=== PATIENT | female | born 1990 | race Caucasian/White ===

== ENCOUNTER → 2020-08-07 07:12 | Outpatient (CLI) | payer BC, OTHER, SELFPAY ==
[2020-08-07 19:39] LABS: SARS-CoV-2 RNA PCR Negative
== END ==
PROVIDERS: PCP Family Medicine; Visit Provider Physician Assistant
DX: R09.89 Other specified symptoms and signs involving the circulatory and respiratory systems (principal); Z20.822 Contact with and (suspected) exposure to COVID-19
CPT/HCPCS: C9803; U0003; U0005

== ENCOUNTER → 2020-11-10 02:15 | Outpatient (CLI) | payer BC, OTHER, SELFPAY ==
[2020-11-10 17:52] LABS: SARS-CoV-2 RNA PCR Negative
== END ==
PROVIDERS: PCP Family Medicine; Visit Provider Nurse Practitioner Family
DX: R68.89 Other general symptoms and signs (principal); Z20.822 Contact with and (suspected) exposure to COVID-19
CPT/HCPCS: C9803; U0003; U0005

== ENCOUNTER → 2021-03-30 08:04 | Outpatient (CLI) | payer BC, OTHER, SELFPAY ==
[2021-03-30 20:28] LABS: SARS-CoV-2 RNA PCR Negative
== END ==
PROVIDERS: PCP Family Medicine; Visit Provider Physician Assistant
DX: R53.83 Other fatigue (principal); Z20.822 Contact with and (suspected) exposure to COVID-19
CPT/HCPCS: C9803; U0003; U0005

== ENCOUNTER 2022-01-17 13:16 | Outpatient (CLI) | payer BC, OTHER, SELFPAY ==
--- NOTE | ~2022-01-17 | US_ITS ---
EXAMINATION: US soft tissue UE RT DATE: 01/17/2022 14:01 INDICATION: Localized swelling, mass and lump along the anterior right forearm. TECHNIQUE: Multiple grayscale and Doppler ultrasound images of the region of concern at the right for earm were obtained. COMPARISON: None FINDINGS: There is branching pattern of low echogenicity likely representing edema extending through the subcut aneous fat in an approximately 1.5 cm region at the site of concern. No other abnormal masses or flui d collections identified. The underlying musculature is unremarkable. IMPRESSION: 1. Small region of nonspecific likely edema interspersed amongst the subcutaneous fat at the region o f concern. No masses or loculated fluid collections. Reviewed, dictated and finalized at location A. IMPRESSION: 1. Small region of nonspecific likely edema interspersed amongst the subcutaneo us fat at the region of concern. No masses or loculated fluid collections.
== END 2022-01-17 13:17 | disposition home or self-care (01) ==
PROVIDERS: PCP Family Medicine; Visit Provider Nurse Practitioner Family
DX: R22.31 Localized swelling, mass and lump, right upper limb (principal)
CPT/HCPCS: 76882

== ENCOUNTER 2022-11-21 08:54 | Outpatient (CLI) | payer BC, SELFPAY ==
--- NOTE | ~2022-11-21 | US_ITS ---
EXAMINATION: US OB <=14 wk fetus w TV DATE: 11/21/2022 10:12 INDICATION: with inconclusive viability. TECHNIQUE: Real-time transabdominal and transvaginal pelvic ultrasound was performed. COMPARISON: None. FINDINGS: TRANSABDOMINAL ULTRASOUND: The uterus measures 11.3 x 6.3 x 8.8 cm. TRANSVAGINAL ULTRASOUND: There is an intrauterine gestational sac. A yolk sac is identified. The fet al crown rump length measures 3.6 cm, which correlates with an estimated gestational age of 10 weeks and 4 day(s) (+/-) 1 week(s) and 0 day(s). heart motion is identified measuring 161 beats per m inute (bpm) by M-mode Doppler. The umbilical cord is thickened with a bulbous contour where it attach es to the anterior abdominal wall, consistent with an omphalocele. The ovaries are not visualized. Th ere is no free fluid in the pelvis. IMPRESSION: 1. Single living intrauterine gestation with estimated date of delivery of 06/15/2023. 2. Omphalocele. Reviewed, dictated and finalized at location A. IMPRESSION: 1. Single living intrauterine gestation with estimated date of delivery of 05/26. 2. Omphalocele.
== END 2022-11-21 08:55 | disposition home or self-care (01) ==
PROVIDERS: PCP Family Medicine; Visit Provider Registered Nurse
DX: O36.80X0 Pregnancy with inconclusive fetal viability, not applicable or unspecified (principal); Z3A.00 Weeks of gestation of pregnancy not specified; Q79.2 Exomphalos
CPT/HCPCS: 76801; 76817

== ENCOUNTER 2023-05-03 15:23 | Outpatient (CLI) | payer BC, SELFPAY ==
[2023-05-03 16:35] LABS: HIV 1/2 Ab P24 Ag Result Negative (Negative)
== END 2023-05-03 15:24 | disposition home or self-care (01) ==
LOC: ANHLAB 15:24
PROVIDERS: PCP Family Medicine; Visit Provider Obstetrics & Gynecology
DX: Z34.92 Encounter for supervision of normal pregnancy, unspecified, second trimester (principal); Z3A.21 21 weeks gestation of pregnancy
CPT/HCPCS: 36415; 86703; G0432

== ENCOUNTER 2023-06-01 03:57 | Inpatient (IN) | payer BC, SELFPAY ==
[2023-06-01] VITALS (139 sets, daily range): BP systolic 86–128; BP diastolic 50–72; PULSE 62–149; RESP 18–19; TEMP 36.1–37.3; O2SAT 83–100; BMI 33.7
[2023-06-01 05:10] LABS: Basophils Absolute Auto 0.1 K/mm3 (0.0-0.1); Basophils Percent Auto 0.4 % (0.2-1.2); Eosinophils Absolute Auto 0.3 K/mm3 (0-0.3); Eosinophils Percent Auto 2.1 % (0-4.4); Hematocrit 35.4 % (37.0-47.0); Hemoglobin 11.8 g/dL (12.0-15.0); Immature Granulocyte Absolute 0.07 K/mm3 (0.00-0.031); Immature Granulocyte Percent A 0.6 % (0-0.5); Lymphocytes Absolute Auto 1.35 K/mm3 (0.9-3.2); Lymphocytes Percent Auto 10.9 % (18.3-44.2); Mean Corpuscular HGB Conc 33.3 g/dl (32-36); Mean Corpuscular Hemoglobin 28.6 pg (26-34); Mean Corpuscular Volume 85.9 fl (80-100); Mean Platelet Volume 9.7 fl (7.4-10.4); Monocytes Absolute Auto 0.8 K/mm3 (0.1-0.6); Monocytes Percent Auto 6.4 % (2.6-8.5); Neutrophils Absolute Auto 9.9 K/mm3 (1.3-6.7); Neutrophils Percent Auto 79.6 % (45.5-73.1); Platelet Count Result 235 k/mm3 (150-375); Red Blood Count 4.12 M/mm3 (4.2-5.4); Red Cell Distribution Width 12.9 % (11.5-14.5); White Blood Count 12.4 K/mm3 (4.5-10.0)
[2023-06-01] MEDS: OXYTOCIN 30 UNITS/NS 500 ML 30 UNITS/500 ML BAG IV CONT (09:42)
[2023-06-01] MEDS: LACTATED RINGERS 1,000 ML 125 ML IV CONT ×2 (09:44→10:39)
[2023-06-01 11:52] LABS: Rapid Plasma Reagin Non-Reactive (NonReactive)
--- NOTE | 2023-06-01 13:54 | PM.IMHP ---
H&P: HPI History of Present Illness Date/Time: 06/01/23 13:54 Chief Complaint: Leaking Narrative: She presented with LOF at 0200 clear. Occasional contractions. Cervix dilated to 2 cm. PNC significant for h/o anxiety, depression.ADHD, which has been stable during . Labs reviewed. GBS neg. Review of Systems Review of Systems: All systems reviewed & are unremarkable except as noted in HPI and below Constitutional: Constitutional: Reports no additional constitutional complaints and Denies headache(s) Eyes: Eyes: Denies spots in vision ENT: Reports system reviewed and no additional complaints, except as documented and Denies headache(s) Cardiovascular: Cardiovascular: Denies chest pain and Denies dyspnea Respiratory: Respiratory: Denies dyspnea Gastrointestinal: Gastrointestinal: Reports no additional gastrointestinal complaints Genitourinary: Genitourinary: Reports amenorrhea Musculoskeletal: Musculoskeletal: Reports no additional musculoskeletal complaints Integumentary/Breasts: Skin/Breast: Denies breast mass and Denies rash Neurologic: Denies headache(s) Psychiatric: Psychiatric: Reports no additional psychiatric complaints [facility] Past Medical History Medical History ADHD (attention deficit hyperactivity disorder) Allergies Anxiety Asthma Surgical History Surgical History No pertinent past surgical history Family History Family History Other Alcohol abuse Asthma Depression Diabetes mellitus History of cancer Hypertension Social History Social History Social History: Smoking status: Never smoker Second hand tobacco smoke exposure: No Alcohol intake: current Drinks per week: 4 Substance use: never Substance use type: does not use Do You Feel Safe in your Home?: Yes Lack of Transportation: No Lack of Food: Never True Current Housing: I Have Housing Concerned About Future Housing: No Difficulty Paying Gas/Electric Bills: No Difficulty Paying for Meds: No Currently Unemployed: No Education: Bachelor's Degree Difficulty w/ Childcare or Family Care: No Living arrangements: with family Occupation/Education: occupation Gender identity (if verbalized by the patient): Female Sexual Orientation (if Verbalized by the Patient): Straight or Heterosexual Spiritual care concerns: No Meds Home Medications and Allergies Home Medications Medication Instructions Recorded Confirmed Type cetirizine 10 mg tablet 10 mg PO DAILY #30 tabs 10/11/21 05/25/23 Rx fluoxetine 20 mg capsule (Prozac) 20 mg PO DAILY 05/27/22 05/25/23 History docosahexaenoic acid 200 mg 20 mg PO DAILY 11/07/22 05/25/23 History capsule ( DHA) dextroamphetamine sulfate 15 mg 15 mg PO DAILY PRN Anxiety 03/09/23 05/25/23 History tablet buspirone 5 mg tablet 20 mg PO DAILY 05/16/23 05/25/23 History Allergies Allergy/AdvReac Type Severity Reaction Status Date / Time No Known Allergies Allergy Verified 05/25/23 09:17 Vital Signs Vital Signs - 24 hr 06/01/23 05:11 06/01/23 05:16 06/01/23 06:36 Temperature 97 F L Pulse Rate 77 76 Respiratory Rate Blood Pressure 100/56 L 122/71 Pulse Oximetry 06/01/23 09:00 06/01/23 10:01 06/01/23 10:33 Temperature 97.2 F L 97.3 F L Pulse Rate 82 Respiratory Rate 18 Blood Pressure 120/70 Pulse Oximetry 100 06/01/23 10:38 06/01/23 10:43 06/01/23 10:44 Temperature Pulse Rate 85 87 Respiratory Rate Blood Pressure 125/70 128/65 Pulse Oximetry 99 99 06/01/23 10:45 06/01/23 10:46 06/01/23 10:48 Temperature Pulse Rate 84 81 Respiratory Rate Blood Pressure 104/63 115/59 L Pulse Oximetry 100 06/01/23 10:49 06/01/23 10:52 06/01/23
[2023-06-01] MEDS: AZITHROMYCIN 500 MG/NS 250 ML 500 MG/250 ML BAG 250 MG IVPB (16:59)
[2023-06-01] MEDS: LACTATED RINGERS 1,000 ML 999 ML IV CONT (17:00)
--- NOTE | 2023-06-01 17:02 | PM.OBPNVD ---
OB - PN: Subj Subjective Date/time seen: 06/01/23 17:02 Interval history: fht 150 -160, cat 2, pt pushing with good effort x 2 hours, position OP, station 0 at onset of pushing, she pushed for two hours and head would descend to +2 with pushing, after pushing remained at 0. She was recommended for primary section for failure to descend. Discussed risk of progressing with pushing, discussed risk of vacuum and forceps which I do not recommend due to baby's station. She agreed to primary section,. OB - PN: Obj Data Labs 06/01/23 04:50 Labs: Laboratory Results - last 24 hr 06/01/23 04:50 WBC 12.4 H RBC 4.12 L Hgb 11.8 L Hct 35.4 L MCV 85.9 MCH 28.6 MCHC 33.3 RDW 12.9 Plt Count 235 MPV 9.7 Immature Gran % (Auto) 0.6 H Neut % (Auto) 79.6 H Lymph % (Auto) 10.9 L [place] % (Auto) 6.4 Eos % (Auto) 2.1 Baso % (Auto) 0.4 Lymph # (Auto) 1.35 [place] # (Auto) 0.8 H Eos # (Auto) 0.3 Baso # (Auto) 0.1 Abs Immat Gran (auto) 0.07 H Absolute Neuts (auto) 9.9 H Absolute Nucleated RBC 0.0 Nucleated RBC % 0.0 RPR Non-reactive Blood Type A Positive Antibody Screen Negative OB - PN A/P Time Spent With Patient Time: Total time spent is greater than 50% in coordination of care (as documented) at patient's floor/unit and/or counseling patient:
--- NOTE | 2023-06-01 17:07 | PM.OBPNVD ---
OB - PN: Subj Subjective Date/time seen: 06/01/23 0830 fht 140s, cat 1, occasional ctx, she declined Pitocin initially, she agrees after eats breakfast. OB - PN: Obj Data Labs 06/01/23 04:50 Labs: Laboratory Results - last 24 hr 06/01/23 04:50 WBC 12.4 H RBC 4.12 L Hgb 11.8 L Hct 35.4 L MCV 85.9 MCH 28.6 MCHC 33.3 RDW 12.9 Plt Count 235 MPV 9.7 Immature Gran % (Auto) 0.6 H Neut % (Auto) 79.6 H Lymph % (Auto) 10.9 L [place] % (Auto) 6.4 Eos % (Auto) 2.1 Baso % (Auto) 0.4 Lymph # (Auto) 1.35 [place] # (Auto) 0.8 H Eos # (Auto) 0.3 Baso # (Auto) 0.1 Abs Immat Gran (auto) 0.07 H Absolute Neuts (auto) 9.9 H Absolute Nucleated RBC 0.0 Nucleated RBC % 0.0 RPR Non-reactive Blood Type A Positive Antibody Screen Negative OB - PN A/P Time Spent With Patient Time: Total time spent is greater than 50% in coordination of care (as documented) at patient's floor/unit and/or counseling patient:
--- NOTE | 2023-06-01 17:10 | P.PNOB_ITS ---
OB - PN: Subj Subjective Date/time seen: 06/01/23 1240 Interval history: fht 145-150 cat 2, continue Pitocin. OB - PN: Obj Data Labs 06/01/23 04:50 Labs: Laboratory Results - last 24 hr 06/01/23 04:50 WBC 12.4 H RBC 4.12 L Hgb 11.8 L Hct 35.4 L MCV 85.9 MCH 28.6 MCHC 33.3 RDW 12.9 Plt Count 235 MPV 9.7 Immature Gran % (Auto) 0.6 H Neut % (Auto) 79.6 H Lymph % (Auto) 10.9 L [place] % (Auto) 6.4 Eos % (Auto) 2.1 Baso % (Auto) 0.4 Lymph # (Auto) 1.35 [place] # (Auto) 0.8 H Eos # (Auto) 0.3 Baso # (Auto) 0.1 Abs Immat Gran (auto) 0.07 H Absolute Neuts (auto) 9.9 H Absolute Nucleated RBC 0.0 Nucleated RBC % 0.0 RPR Non-reactive Blood Type A Positive Antibody Screen Negative OB - PN A/P Time Spent With Patient Time: Total time spent is greater than 50% in coordination of care (as documented) at patient's floor/unit and/or counseling patient:
--- NOTE | 2023-06-01 17:10 | W.PM.PROC2 ---
Procedure Note - Detailed Date of Procedure 06/01/23 Pre-op Diagnosis Failure to descend. Post-op Diagnosis Same Procedure Performed Primary low transverse section Surgeon Cristofer Rod MD [employer] Heidy Maxwell Anesthesia Epidural Indications 33 y/o presented with SROM 0200. She did have pitocin augmentation after approx 6 hours, no active labor. IUPC placed to better access contraction pattern. She did had epidural placed on request. She progressed in labor. She dilated to complete. She pushed for two hours with good effort and no descent. Thick meconium noted during pushing. She was recommended for section for failure to descend. Risk benefits of discussed and risk of persisting with pushing discussed. She agreed to section. Findings Female , ROP, thick meconium, normal uterus and fallopian tubes and ovaries Description of Procedure After informed consent, risks and benefits of the procedure was discussed with the patient. The patient was taken to the operating room where she was placed in the dorsal lithotomy position with leftward tilt. After the prior placed epidural anesthesia was found to be adequate, she was then prepped and draped in the usual sterile fashion. A Pfannenstiel skin incision was made with a scalpel and carried through to the underlying layer of fascia. The fascia was then nicked in the midline, extending bilaterally. The fascia was dissected off the rectus muscles bluntly and sharply, superiorly and inferiorly. The rectus muscles were in the midline, and peritoneum was identified and entered bluntly. The pelvic organs were visualized. The bladder blade was then inserted. The vesicouterine peritoneum was identified and entered sharply with Metzenbaum scissors and extended bilaterally and then the bladder flap was created digitally. The low transverse uterine incision was then made with the scalpel and extended with bilateral index fingers in a crescent-shaped fashion. The head was delivered and the rest of the infant was delivered. The nose and mouth suctioned. The cord was clamped twice and cut. The was then handed off to the awaiting pediatric staff. The placenta was then delivered manually. The uterine cavity was sponge curretted. The uterus was then exteriorized. The uterine incision was then closed with 0 vicryl in a running locked fashion x 2 sutures. There was an inferior mid extension of the incision repaired with 3.0 vicryl. A figure of eight of 0 vicryl at the left of incision was used for hemostasis. Hemostasis noted. The uterus was then returned to the abdomen. Bilateral gutters were cleared off all clots and debris. The uterine incision was noted to be hemostatic. Interceed placed on uterine incision. The muscle bellies were inspected and noted to be hemostatic. The peritoneum was approximated with 3.0 vicryl. The subfascial layer was noted to be hemostatic, and the fascia was closed with 0 Vicryl in a running fashion. The subcutaneous layer was then closed with 3-0 Vicryl in a subcutaneous fashion. The skin was closed with Ensorb joby. Skin dermabond applied at incision. All instruments, needle, and lap counts were correct x3. The patient was taken to the recovery room in stable condition. Estimated Blood Loss 315 Drains No Packing No Pathology Yes (Placenta and cord) Complications No immediate complications Condition Stable Disposition Floor [facility] Billing Surgery - Charge Forward: Surgery Billing
[2023-06-01] MEDS: ceFAZolin 2 GM/D5W 50 ML 2 GM/50 ML BAG IVPB (17:16)
[2023-06-01] MEDS: OXYTOCIN 30 UNITS/NS 500 ML 30 UNITS/500 ML BAG 125 UNITS IV CONT (19:34)
--- NOTE | 2023-06-01 20:37 | OBPPTRN ---
Patient transferred to post room #286 via stretcher. Support person present. Oriented to unit, room, information board, rooming in, admission packet and security measures. Patient verbalizes understanding.
[2023-06-01] MEDS: ACETAMINOPHEN 325 MG TABLET 650 MG PO (21:40)
[2023-06-01] MEDS: KETOROLAC 15 MG/ML VIAL (*BKC) IV PUSH (21:40)
[2023-06-02 00:15] VITALS: BP 100/57; PULSE 82; RESP 18; TEMP 36.4; O2SAT 99
--- NOTE | 2023-06-02 00:20 | PC.NURSE ---
0015- This RN entered patient room to do assessments and patient looked tearful and exhausted. Baby was being rocked by father and was crying. Patient stated that baby had been crying for a while and acting hungry. She stated that she put her to breast and she attempted to feed but she doesn't feel as though she was getting milk due to the fussiness and no milk with hand expression. This RN asked patient how she was feeling and she stated she was tired and overwhelmed. This RN told patient that baby was exhibiting hunger cues and explained different feeding options - attempting to put baby to breast again, attempting to pump and feed, or supplementing with formula. Patient stated she wasn't sure what would be the best option. After discussion with support person, mother stated that she would like me to take baby to the nursery for the night so she can rest and to give baby formula. This RN offered breast pump and educated about pumping every 2-3 hours for 15 minutes in order to protect milk supply. Mother stated that she would like to start pumping in the morning.
[2023-06-02] MEDS: DEXTROSE 5%/0.45% SOD CHL 1,000 ML 125 ML IV CONT (01:00)
[2023-06-02] MEDS: ceFAZolin 1 GM/NS 50 ML 1 GM/50 ML BAG IVPB ×3 (01:00→17:03)
[2023-06-02] MEDS: KETOROLAC 15 MG/ML VIAL (*BKC) IV PUSH ×3 (03:35→19:20)
[2023-06-02] MEDS: ACETAMINOPHEN 325 MG TABLET 650 MG PO ×3 (03:35→19:20)
[2023-06-02 04:44] LABS: Basophils Percent Auto 0.2 % (0.2-1.2); Eosinophils Absolute Auto 0.1 K/mm3 (0-0.3); Eosinophils Percent Auto 0.6 % (0-4.4); Hematocrit 28.4 % (37.0-47.0); Hemoglobin 9.2 g/dL (12.0-15.0); Immature Granulocyte Absolute 0.05 K/mm3 (0.00-0.031); Immature Granulocyte Percent A 0.4 % (0-0.5); Lymphocytes Absolute Auto 0.79 K/mm3 (0.9-3.2); Lymphocytes Percent Auto 6.4 % (18.3-44.2); Mean Corpuscular HGB Conc 32.4 g/dl (32-36); Mean Corpuscular Hemoglobin 28.2 pg (26-34); Mean Corpuscular Volume 87.1 fl (80-100); Monocytes Absolute Auto 0.9 K/mm3 (0.1-0.6); Monocytes Percent Auto 7.3 % (2.6-8.5); Neutrophils Absolute Auto 10.6 K/mm3 (1.3-6.7); Neutrophils Percent Auto 85.1 % (45.5-73.1); Platelet Count Result 187 k/mm3 (150-375); Red Blood Count 3.26 M/mm3 (4.2-5.4); White Blood Count 12.4 K/mm3 (4.5-10.0)
[2023-06-02 07:45] VITALS: BP 94/51; PULSE 71; RESP 16; TEMP 36.8; O2SAT 98
[2023-06-02 08:00] VITALS: PULSE 71; RESP 16; O2SAT 98
[2023-06-02] MEDS: MULTIVIT/MIN/PREN/FOL AC/IRON TABLET 1 TAB PO (09:10)
[2023-06-02] MEDS: POLYSACCHARIDE IRON COMPLEX 150 MG CAPSULE PO ×2 (09:10→17:02)
[2023-06-02] MEDS: DOCUSATE SODIUM 100 MG CAPSULE PO ×2 (09:10→17:02)
[2023-06-02] MEDS: SIMETHICONE 80 MG TAB.CHEW PO ×3 (09:10→17:02)
--- NOTE | 2023-06-02 09:10 | P.PNOB_ITS ---
OB - PN: Subj Subjective Date/time seen: 06/02/23 09:10 Patient comments: pain well controlled, incisional pain, tolerating diet and flatus present [place] baby status: doing well OB - PN: Obj Data Labs 06/02/23 03:56 Labs: Laboratory Results - last 24 hr 06/01/23 06/02/23 04:50 03:56 WBC 12.4 H RBC 3.26 L Hgb 9.2 L Hct 28.4 L MCV 87.1 MCH 28.2 MCHC 32.4 RDW 13.0 Plt Count 187 MPV 10.0 Immature Gran % (Auto) 0.4 Neut % (Auto) 85.1 H Lymph % (Auto) 6.4 L [place] % (Auto) 7.3 Eos % (Auto) 0.6 Baso % (Auto) 0.2 Lymph # (Auto) 0.79 L [place] # (Auto) 0.9 H Eos # (Auto) 0.1 Baso # (Auto) 0.0 Abs Immat Gran (auto) 0.05 H Absolute Neuts (auto) 10.6 H Absolute Nucleated RBC 0.0 Nucleated RBC % 0.0 RPR Non-reactive OB - PN A/P Assessment and Plan (1) Delivery by section: Status: Acute Assessment and Plan: POD 1. Doing well. Up ad sona Recommend abdominal binder. Tolerating normal diet. Pain is well controlled. Will continue abx until 24 hours post delivery. Plan day: 1 Plan: routine care Time Spent With Patient Time: Total time spent is greater than 50% in coordination of care (as documented) at patient's floor/unit and/or counseling patient: Review of Systems Constitutional: Constitutional: Reports as per HPI Cardiovascular: Cardiovascular: Reports no additional cardiovascular complaints Respiratory: Respiratory: Reports no additional respiratory complaints Gastrointestinal: Gastrointestinal: Reports no additional gastrointestinal complaints Exam Const: General: cooperative, comfortable and no acute distress Orientation/consciousness: patient oriented x3 Resp: Effort & Inspection: normal respiratory effort and able to speak in complete sentences GI: Inspection: normal to inspection Other: Fundus palpated below U. Non tender Incision clean, dry, intact Skin: General skin exam: normal color Neuro: General: patient oriented x3 Extrem: General: normal to inspection, full ROM, no calf tenderness and no edema
--- NOTE | 2023-06-02 10:03 | WPDANLDPN2 ---
Anes-Prog Note L&D Date/Time: 06/02/23 10:03 Neuro status: Neuro function grossly intact. Cardiovascular status: normal Respiratory status: normal Airway patency: baseline Mental status: baseline Post-Op hydration status: normal Vital Signs: Last Vital Signs Temp 36.8 C 06/02/23 07:45 Pulse 71 06/02/23 07:45 Resp 16 06/02/23 07:45 BP 94/51 L 06/02/23 07:45 Pulse Ox 98 06/02/23 07:45 O2 Del Method Room Air 06/01/23 21:20 Pain score (VAS): 0 I/O: Intake & Output 06/01/23 06/02/23 06/02/23 23:59 07:59 15:59 Intake Total 1000 50 Output Total 95 600 Balance 905 -550 Post-procedural complaints: none Patient feedback: Patient satisfied with anesthetic care.
--- NOTE | 2023-06-02 10:04 | WPDANLDNPN2 ---
Anes-Prog Note L&D-Neuraxial Date/Time: 06/02/23 10:04 Patient feedback: Patient satisfied with post-operative pain management.
[2023-06-02 12:04] VITALS: BP 100/50; PULSE 82; RESP 16; TEMP 37.4; O2SAT 99
--- NOTE | 2023-06-02 15:15 | PC.NURSE ---
[id number] Introductions were made, then consulted with patient to assess needs related to . Mother led the conversation with her?plans to feed?her infant and the?experience so far. Encouraged understanding of the benefits of skin to skin (demonstrating unwrapping and placing upright on her chest), stimulating with massage touch, changing positions to encourage wakefulness, how to watch for early feeding cues, responsive feeding, feeding on demand (aiming for 8-12 times in 24 hours, about every 2-3 hours), milk production, building/maintaining a milk supply, duration of feeding, signs of adequate intake/output and how to record on the feeding sheet. Mother works well with her with encouragement and education. Mother has a red crease on her right nipple from an earlier breastfeed. Once feeding cues were visualized, then we reviewed positioning and ear, shoulder, hip alignment, supporting the breast to facilitate a deep latch, asymmetrical latch (off-center), leading with the chin with a big, open, wide gape and body close to mother. is crying and arching so was placed back upright [id number]. Education was demonstrated on how to hand express breast milk. Infant reset, then attempts were made until infant communicated lack of interest. Infant has asymmetric facial features. Discussed with parents what we expect for milk production, how to build it, and to contact a doctor or IBCLC if her milk is not full volume by day 5. Breast pump provided due to ineffective feeding. Instructions given on cleaning, care, usage, that there should be no pain, pumping schedule for milk production, collection, and storage of human milk. Patient was assessed for correct placement, flange size, to pump for comfort and nipple stretching/stimulation for adequate milk production every 3 hours (8 times in 24 hours) 1-2 times at night. Parents are encouraged to record the pumping schedule on the feeding sheet.?Mother voiced understanding of the education shared along with mom/baby guide and the pump measurement, flange fit handout for additional resource information. was spoon fed the small puddle of yellow EBM. Infant again after [id number] demonstrated feeding cues and Infant latched optimally to the right, then left breast in football and cross cradle position. was unable to maintain latch past a few sucks. There was initial discomfort, mother was encouraged to give the appropriate latch about 60-90 sec of deep breathing to see if the pain subsides since had a big, wide, open mouth, tongue down, nice rounded cheek line, good rocking jaw motion but infant stopped latching after about 90 sec so we don't know if the pain would subside or not with the latch. Instructions were shared with the parents to protect the nipple with optimal positioning and latching. Reviewed comfort measures of healing with a warm, wet washcloth to rinse breast, then leave open to air-dry, good handwashing when or touching the breast/nipples to prevent infection. Mother voiced understanding of skin to skin, stimulating with massage touch, responsive feedings, hand expressed colostrum, talking to infant to encourage if it has been 2 -2.5 hours since the start of the last , to call if does not latch, or if there is discomfort with . Resources used for education were facilitated with the visual educational handouts, tool, mom and baby guide. Inpatient/outpatient resources provided with feeding sheet, name written on the communication board, and the mom/baby guide. Parents voiced understanding of information, demonstrated learning and will call if there is a request for assistance. Reported to the Primary RN.
[2023-06-02 17:14] VITALS: BP 109/60; PULSE 77; RESP 16; TEMP 36.9; O2SAT 99
[2023-06-02 19:00] VITALS: BP 107/61; PULSE 81; RESP 18; TEMP 36.9; O2SAT 100
[2023-06-03] MEDS: IBUPROFEN 600 MG TABLET PO ×3 (04:10→19:06)
[2023-06-03] MEDS: ACETAMINOPHEN 325 MG TABLET 650 MG PO ×3 (04:10→19:06)
[2023-06-03 08:00] VITALS: BP 98/60; PULSE 73; RESP 18; TEMP 36.9; O2SAT 100
--- NOTE | 2023-06-03 08:00 | PC.NURSE ---
PT introductions made and plan of care discussed per post op c section, pain management, breast feeding, pumping and supplementing, daily care activities. PT and spouse both recipients of such instructions and no barriers to learning identified at this time. PT received such instructions per one to one discussion, mom baby care guide and demonstrations this shift. PT and spouse both verbalized understanding of such care.
[2023-06-03] MEDS: MULTIVIT/MIN/PREN/FOL AC/IRON TABLET 1 TAB PO (08:27)
[2023-06-03] MEDS: SIMETHICONE 80 MG TAB.CHEW PO ×2 (08:28→16:45)
[2023-06-03] MEDS: POLYSACCHARIDE IRON COMPLEX 150 MG CAPSULE PO ×2 (08:28→16:45)
[2023-06-03] MEDS: DOCUSATE SODIUM 100 MG CAPSULE PO ×2 (08:29→16:45)
[2023-06-03] MEDS: LANOLIN (LANSINOH) 7.5 GM CREAM 1 APPLIC TOPICAL (08:30)
--- NOTE | 2023-06-03 10:08 | PM.OBPNVD ---
OB - PN: Subj Subjective Date/time seen: 06/03/23 10:08 Interval history: She has ambulated without problems, pain controlled, had some burning at incision, no drainage, no leg pain. Patient comments: tolerating diet and flatus present OB - PN: Obj Data Labs 06/02/23 03:56 OB - PN A/P Assessment and Plan (1) Delivery by section: Status: Acute Assessment and Plan: POD2. Doing well. Mild erythema near incision. Area marked. Will continue to observe. No incisional drainage. Routine post care. Time Spent With Patient Time: Total time spent is greater than 50% in coordination of care (as documented) at patient's floor/unit and/or counseling patient: Exam Const: General: comfortable and no acute distress Resp: Effort & Inspection: normal respiratory effort GI: Other: incision intact, there is some erythema above and lat incision, no warmth, area marked Extrem: General: normal to inspection and no calf tenderness Psych: Mental Status: mental status grossly normal Affect: normal affect
[2023-06-03] MEDS: FLUoxetine HCL 20 MG CAPSULE PO (12:08)
[2023-06-03] MEDS: busPIRone HCL 10 MG TABLET 20 MG PO (12:10)
[2023-06-03] MEDS: LIDOCAINE 5% PATCH 1 PATCH TRANSDERM (12:11)
[2023-06-03 19:05] VITALS: BP 113/60; PULSE 83; RESP 18; TEMP 36.7; O2SAT 100
[2023-06-04] MEDS: IBUPROFEN 600 MG TABLET PO ×2 (00:53→07:27)
[2023-06-04] MEDS: ACETAMINOPHEN 325 MG TABLET 650 MG PO ×2 (00:54→07:27)
[2023-06-04] MEDS: SIMETHICONE 80 MG TAB.CHEW PO (07:26)
[2023-06-04] MEDS: POLYSACCHARIDE IRON COMPLEX 150 MG CAPSULE PO (07:26)
[2023-06-04] MEDS: MULTIVIT/MIN/PREN/FOL AC/IRON TABLET 1 TAB PO (07:26)
[2023-06-04] MEDS: DOCUSATE SODIUM 100 MG CAPSULE PO (07:26)
[2023-06-04] MEDS: busPIRone HCL 10 MG TABLET 20 MG PO (07:26)
[2023-06-04] MEDS: FLUoxetine HCL 20 MG CAPSULE PO (07:26)
[2023-06-04 08:16] VITALS: BP 103/61; PULSE 71; RESP 18; TEMP 36.7; O2SAT 100
--- NOTE | 2023-06-04 09:40 | PM.OBPNVD ---
OB - PN: Subj Subjective Date/time seen: 06/04/23 09:40 Interval history: She has ambulated without problems, pain controlled. Incision feels better. No leg pain. OB - PN: Obj Data Labs 06/02/23 03:56 OB - PN A/P Assessment and Plan (1) Delivery by section: Status: Acute Assessment and Plan: POD3. Doing well. Adequate pain control. Will discharge home today. Discharge precautions discussed. Time Spent With Patient Time: Total time spent is greater than 50% in coordination of care (as documented) at patient's floor/unit and/or counseling patient: Exam Const: General: comfortable and no acute distress Resp: Effort & Inspection: normal respiratory effort GI: Other: incision intact, the prior slight erythema area resolved, no drainage Extrem: General: normal to inspection (1+ edema bilat ) and no calf tenderness (no erythema) Psych: Mental Status: mental status grossly normal Affect: normal affect
--- NOTE | 2023-06-04 09:48 | PM.OBDSVD ---
DS: Admitting Diagnosis Discharge Date 06/04/23 Admitting Diagnosis Leaking of fluid DS: Discharge Diagnosis Discharge Diagnosis (1) Delivery by section: Status: Acute OB - DS: Summary Hospital Course Hospital Course: She was admitted for leaking of fluid. Labor course significant for failure to descend. She had an uncomplicated primary section. She did well postoperatively. On POD 2 there was slight redness superior and lateral to incision, which was marked and this resolved spontaneously. On POD3 she was doing well. She had adequate pain control, ambulating well, decreasing lochia, tolerating regular food, and positive flatus. She was discharged to home. OB Procedures : Ultrasound OB Procedures Intrapartum: OB Procedures: : Antibiotics (prophylactic after delivery) Peripartum Data Infant Delivery Method: Section Procedures: Procedures Operation Date: 06/01/23 17:30 Actual Procedure Side Surgeon p Section Cristofer Rod MD complications: none Status at Discharge Functional status at discharge: independent ambulation Time Spent with Patient Time attestation: Total time spent providing and/or coordinating discharge services: Exam Const: General: cooperative Orientation/consciousness: oriented to person, oriented to place and oriented to time HENMT: Face/Nose/Sinus: Normal external nose present Eyes: General: appearance normal, both eyes and all related structures Resp: Effort & Inspection: normal respiratory effort GI: Inspection: normal to inspection Skin: General skin exam: normal color Neuro: General: oriented to person, oriented to place and oriented to time Extrem: General: normal to inspection and no calf tenderness Psych: Appearance: grossly normal Mental Status: mental status grossly normal DS: Data Data Completed and Pending Pending studies at discharge: Pending at discharge 06/01/23 19:00 Surgical [PTH] Routine Discharge Plan Discharge Attending physician on discharge: Cristofer Rod Consulting providers: John Li Discharging Clinician: Cristofer Rod Anticipated Discharge Date/Time: 06/04/23 09:44 Patient Disposition: Home, Self-Care Activity: may shower, no driving and pelvic rest Diet: regular Discharge Instructions: Education: Mom and Baby Guide Given to: Mother Follow-Up: Call your delivering provider's office for an appointment to be seen in: 2 Weeks Mom and baby should come to the [facility] for the follow-up appointment. Appointment Date/Time: June 05, 2023 at 12:30 pm What to expect at your follow-up visit: Blood Pressure Check Physical Assessment Call [phone] if you are unable to keep your appointment time. BREAST CARE: * Wear a snug supportive bra. * For engorgement discomfort: Breast Feeding: * Apply warm moist washcloths * Express milk as needed to relieve engorgement * Wear loose clothing Bottle Feeding: * May apply ice packs * For sore nipples: * Identify correct latch-on * Apply warm moist washcloths before and after nursing * Air dry nipples after nursing * May apply Lansinoh cream to nipples ABDOMINAL INCISION: (if applicable) * Allow incision to air dry * Do NOT use lotions for powders on your incision * When showering, allow soap and water to run over the incision, but do not wash incision EPISIOTOMY/PERINEAL CARE: * Until bleeding stops, use your freddy bottle after urinating * Change your pad frequently throughout the day * You may take sitz baths several times a day (fill your bathtub with warm water and soak for 20 minutes.) Do NOT bathe in the water * No tub baths until seen by your physician - You may shower ACTIVITY: * Rest as much as possible. * Do not exercise or lift anything heavier t
[2023-06-04] MEDS: MEASLES,MUMPS,RUBELLA VACCINE 0.5 ML VIAL SUB-Q (10:22)
[2023-06-05 13:09] VITALS: BP 113/58; PULSE 74; RESP 18; TEMP 37.2; O2SAT 100
== END 2023-06-04 11:45 | disposition home or self-care (01) | DRG 788 ==
LOC: ANHLDR 04:33 → ANHOB2 20:55
PROVIDERS: Obstetrics & Gynecology; Admitting Provider Obstetrics & Gynecology; Visit Provider Obstetrics & Gynecology
PROC: 10D00Z1 Extraction of Products of Conception, Low, Open Approach (ICD-10-PCS; CPT 59514; principal; 2023-06-01 17:30)
DX: O32.4XX0 Maternal care for high head at term, not applicable or unspecified (principal); O99.344 Other mental disorders complicating childbirth; O77.0 Labor and delivery complicated by meconium in amniotic fluid; Z3A.38 38 weeks gestation of pregnancy; Z37.0 Single live birth; F41.9 Anxiety disorder, unspecified; F90.9 Attention-deficit hyperactivity disorder, unspecified type
CPT/HCPCS: 36415; 84112; 85025; 86592; 86850; 86900; 86901; 88307; 90710; A9270; J0690; J1885; J2274; J2590; J2795; J7120

== ENCOUNTER 2023-06-14 14:35 | Outpatient (RCR) | payer BC, SELFPAY ==
--- NOTE | 2023-06-14 15:43 | PC.NURSE ---
In- 1305 Out- 1440 Reason for visit: Latch issues History: Maria Teresa is a mother who delivered on [birth year]/01/2021 after dilating to complete, then having a primary section. There was separation after delivery related to being level II for a period of time. Infant was born at 38 weeks and initially had difficulty maintaining blood sugar levels and was given gel and formula with a syringe, then ultimately with a bottle. At some point a nurse attempted to latch with a tight tongue with a nipple shield, however; that was not successful at times either. Mother protected her milk supply with pumping and was discharge to home with a combination feeding plan. Mother has a a hx of anxiety, depression, and ADHD. Medications are Buspar 20 mg, Prozac 20mg, and iron. LC worked with mother while inpatient status and would not maintain, was spoon fed, mother had injured right nipple, and mother was open to learning hand expression. Mother had a full supply of milk come to full volume on day 3-4. Infant History: 38 EGA Fe was Level II after delivery born with thick meconium. Asymmetrical nasal passages with stuffiness after delivery. Infants nasal passages are improved, however; still a bit asymmetrical. Observations: is fussy at the engorged breast. After the milk was released, breast softened, and the nipple shield was used as a tool to get infant latched well, then we took the nipple shield off and latched without difficulty to the right breast. effectively breastfed for 30 minutes while RN BERNARD obtained history since delivery and education was reviewed with questions answered. After infant breastfed on the right breast infant was weighed at 3594g (7-14.7) Intake measures at 93mls of breastmilk per 1gm=1ml. We used the nipple shield again to get latched to the left breast and was able to effectively latch to the left breast, however; it did take a few attempts to get a good deep latch. Once the breast was soften, then once again mother was able to let go of her sandwich hold and infant maintained a effective latch to breastfeed 20 more minutes for 50mls. weight: Unsure related to not weighed correctly. Follow up weight was 3260g (7-3.0) and weight today at the doctors office was 7-14 Lowest weight: It was determined that infant was properly fed and the weight loss charted was possibly inaccurate. Last weight: 7-[address] Rey's office Pre-feed weight: 3501g (7-11.4) Post-feed weight: 3644g (8-0.5) Plan of Care: Mother will practice the tips and techniques to get infant to latch optimally without the nipple shield. Mother shared if she is unable to get infant to latch on her own without the nipple shield she will pump to protect her milk supply and if necessary she will feed her infant with the pumped breast milk. We reviewed the risks and benefits of feeding options and mother voiced understanding. Follow up plans: We plan to follow up in the future if there are any more questions or concerns. Mother voiced when to call a doctor for concerns.
== END 2023-09-12 23:59 | disposition home or self-care (01) ==
LOC: ANHOBOP 14:35
PROVIDERS: Visit Provider Pediatrics
DX: Z39.1 Encounter for care and examination of lactating mother (principal)
CPT/HCPCS: 99213; G0463

== ENCOUNTER 2023-06-27 13:54 | Outpatient (CLI) | payer BC, SELFPAY ==
[2023-06-27 14:50] LABS: Influenza A QL RT-PCR Positive (Negative); Influenza B QL RT-PCR Negative (Negative); RSV RNA, RT-PCR Negative (Negative); SARS-CoV-2 RNA PCR Negative (Negative)
== END 2023-06-27 13:55 | disposition home or self-care (01) ==
LOC: ANHLAB 13:55
PROVIDERS: Visit Provider Physician Assistant
DX: R50.9 Fever, unspecified (principal); Z20.822 Contact with and (suspected) exposure to COVID-19
CPT/HCPCS: 87637